=== PATIENT | male | born 1960 | race Hispanic/Latino ===

== ENCOUNTER 2017-01-09 12:55 | Observation (INO) | payer OTHER ==
[~2017-01-09] VITALS: Ht 167.6 cm; Wt 92.9 kg
[~2017-01-09 12:55] MED LIST: ASPI-628 PO; ATOR20TA PO; IBUP800T28 PO; IMI25 PO; TERA2CAP4 PO
[2017-01-09 13:00] VITALS: BP 143/82; PULSE 72; RESP 16; O2SAT 98
[2017-01-09 14:19] VITALS: BP 129/65; PULSE 57; RESP 18; O2SAT 98
[2017-01-09 14:45] LABS: APPEARANCE,URINE CLEAR (CLEAR,HAZY); COLOR,URINE YELLOW (YELLOW); OCCULT BLOOD,URINE LARGE (NEGATIVE); PH,URINE 5.5 (5.0-8.0); UROBILINOGEN,URINE NORMAL (NORMAL)
--- NOTE | 2017-01-09 14:58 | ED.REPORT ---
HPI-Neurologic Deficit Date of Service Jan 09, 2017 ED Provider: Casey Mann PA-C Conor is a 56-year-old male with a history of hyperlipidemia and stroke who presents with a chief complaint stroke symptoms. Patient states that while he feels fine presently, his coworkers noticed 2 episodes in which he appeared to have difficulty speaking, where he felt that his "mouth was twisting" and he "felt drunk" like he was walking sideways. The first episode occurred at 10:22 at 12:20. He currently has no complaints however his family states that they feel his speech sounds slurred. His previous stroke was 2 years ago and he reports increased forgetfulness as his only deficit. He currently takes topiramate, atorvastatin and aspirin as well as a prostate medication. Denies headache, chest pain, difficulty breathing, abdominal pain. Nursing Notes Stated Complaint: POSSIBLE STROKE Chief Complaint: Neuro Symptoms/ Deficits Nursing Notes Reviewed: Yes Allergies: Coded Allergies: No Known Allergies (Verified Allergy, Unknown, 01/09/17) Scheduled Aspirin (Aspir 81) 81 Mg Tablet.dr 81 MG PO DAILY Atorvastatin (Lipitor) 20 Mg Tablet 40 MG PO HS Terazosin (Terazosin) 2 Mg Capsule 4 MG PO HS Scheduled PRN Ibuprofen (Ibuprofen) 800 Mg Tablet 800 MG PO TIDPC PRN PRN For Pain Sumatriptan (Imitrex) 25 Mg Tablet 50 MG PO Q2H PRN PRN migraine General Time Seen by Provider: 17:35 Chief Complaint Other (aphasia) Hx Obtained From: Patient, Daughter, Other family... Arrived By: Walk-in Sudden in Onset?: Yes Onset Occurred: 1 - 4 hours ago Symptom Duration: Since onset Recent Healthcare: No recent doctor visit, No recent hospitalization Similar Sx Previous: No Risk Factors NIH Stroke Scale Level of Consciousness: Alert and responsive (0) Ask Month & Age: Both questions right (0) Open/Close Eyes/Hand Costing Manager: Performs both tasks (0) Horizontal EO Movements: None (0) Visual [place]: No visual loss (0) Facial Palsy: Normal symmetry (0) Right Arm Motor Drift (10s): No drift 10 sec (0) Left Arm Motor Drift (10s): No drift 10 sec (0) Right Leg Motor Drift (5s): No drift 5 sec (0) Left Leg Motor Drift (5s): No drift 5 sec (0) Limb Ataxia FNF/Heel-Franco: No ataxia (0) Sensation (Arms/Legs/Face): No sensory loss (0) Language Aphasia: No aphasia, normal (0) Dysarthria: No dysarthria, normal (0) Extinction/Inattention: No exctinct/inattent (0) NIHSS Score: 0 Time NIHSS Performed: 17:47 Date NIHSS Performed: Jan 09, 2017 Past Medical History Past Medical History Reports: Stroke Past Surgical History denies Smoking History Never Smoker Social History Alcohol Use: 1-3 per day Other Social History: Good social support, , Local resident Ambulatory Status Independent Review of Systems Negative unless stated otherwise in history of present illness Respiratory: Denies: Shortness of breath Cardiovascular: Denies: Chest pain GI: Denies: Abdominal pain Neurologic: Reports: Dizziness, Unable to speak, Denies: Headache, Weakness Complete sys rev & neg: except as marked. Physical Exam General: Well appearing, well developed, well nourished, no acute distress. Head: Atraumatic, normocephalic. Eyes: No scleral icterus or injection. No discharge. Vision grossly intact. ENT: Voice clear, hearing grossly intact. Respiratory: Regular rate and rhythm. Breath sounds present, clear to auscultation and equal bilaterally. No respiratory distress. No increased work of breathing, speaks in complete sentences. Cardiovascular: Regular rate and rhythm, without murmur, gallop or rub. No pedal edema. Gastrointestinal: Abdomen flat and non-tender without guarding or rebound. Bowel sounds normoactive. Skin: Warm and dry. Neurological: Slightly widened gait. Ataxia on heel to toe walk. Normal heel rise, toe rise, Romberg. Negative pronator drift, leg drift. Normal rapid hand , finger-nose. Cranial nerves: Vision grossly intact, PERRL, EOMI. Jaw opens slightly to the right. Tongue protrudes symmetrically, uvula rises symmetrically. No facial droop noted, eyebrows rise symmetrically, sensation to light touch over forehead , maxilla and mandible present and equal B/L. Voice clear and fluent, no drooling/pooling of saliva, uvula rises midline. Psychological: Alert and oriented. Speech appropriate, linear and logical. Behavior appropriate. Initial Vital Signs Vital Signs (First) Date Time Temp Pulse Resp B/P Pulse Ox O2 Delivery O2 Flow Rate FiO2 01/09/17 13:00 36.8 72 16 143/82 98 Room Air Initial VS: Reviewed, Vital signs normal ENT: Mucous membranes moist, Conjunctiva normal, No scleral icterus Neck: Supple, Non-tender, Full range of motion Abdomen / GI: Soft, Non-tender, No guarding, No rebound, No distention Extremities: Vascular intact, Neuro intact, No swelling, No tenderness Skin: Warm, Dry, No cyanosis Psychiatric: Mood/affect normal, Behavior normal, Normal thought content General/Constitutional: Awake, Alert, No acute distress, Cooperative Head / Eyes: Atraumatic, Normocephalic, PERRL, EOMI Respiratory / Chest: Atraumatic, Breath sounds NL, No respiratory distress Cardiovascular: Heart rate NL, Regular rhythm, Heart sounds NL Neurologic: Oriented X3, Speech NL, No motor deficits Interpretation & Diagnostics Lab Results Interpretation Test 01/09/17 14:24 Urine Color Yellow (YELLOW) Urine Appearance Clear (CLEAR,HAZY) Urine pH 5.5 (5.0-8.0) Urine Specific [place] 1.025 (1.003-1.035) Urine Protein Negativemg/dL (NEG,TRACE) Urine Glucose (UA) Negativemg/dL (NEGATIVE) Urine Ketones Negativemg/dL (NEGATIVE) Urine Occult Blood Large (NEGATIVE) Urine Nitrite Negative (NEGATIVE) Urine Bilirubin Negative (NEGATIVE) Urine Urobilinogen Normalmg/dL (NORMAL) Urine Leukocyte Esterase Negative (NEGATIVE) Urine RBC 11-50/hpf (0-2) Urine WBC 0-5/hpf (0-5) Urine Epithelial Cells Occasional/hpf (NONE-MOD) Urine Crystals None seen (NONE SEEN) Urine Bacteria None/hpf (NONE-FEW) Urine Hyaline Casts Occasional/lpf (NONE) Urine Granular Casts None seen (NONE SEEN) Urine Waxy Casts None seen (NONE SEEN) Urine Red Blood Cell Casts None seen (NONE SEEN) Urine White Blood Cell Casts None seen (NONE SEEN) Urine Mucus Present (None Seen) Urine Trichomonas None seen (NONE SEEN) Urine Yeast None (NONE SEEN) Urinalysis Comment None Urine Culture Reflexed Not indicated Hold Urine Received (Received) ECG Interpretation ECG Interpretation: RBBB Time: 17:59 Interpreted by: ED physician Normal ECG Interpretation: Normal ECG w/ rate of... (56) CT Head Interpretation IMPRESSION: 1. No acute process. 2. 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 3. Small right superior frontal meningioma is unchanged. 3. No change in small chronic right basal ganglia infarcts. Dictated by: Lashanda Wick M.D. on 01/09/2017 at 16:36 Approved by: Lashanda Wick M.D. on 01/09/2017 at 16:40 Study: Head CT no contrast Interpretation / Wet Read by: Interpret - Radiologist Re-Eval/Medical Decision Re-Evaluation/Progress : Time of Eval: 17:49 Patient Status: Condition unchanged Re-Evaluation/Progress Note: Pt rechecked. Discussed plan of treatment with family and patient and need for admission for mini-strokes and further evaluation. Family understands and agrees with treatment. Counseled Regarding: Diagnosis, Lab results, Need for admission Discharge & Departure Impression: Primary Impression: TIA (transient ischemic attack) Transient cerebral ischemia type: unspecified Qualified Code: G45.9 - Transient cerebral ischemic attack, unspecified Disposition: ADMITTED TO HOSPITAL Discharge Condition All VS Reviewed: Yes Condition: Stable Referrals: Timo Estrella MD (PCP) Scribe Attestation Portion of this note were transcribed by Ruth Daley. I, Dr. Finney, personally performed the history, physical exam, and medical decision-making: I reviewed and confirmed the accuracy for the information in the transcribed note. Signed by: gus Hernandez, 01/09/17 1930 copies to: Timo Estrella MD, Seth PA-C Jan 09, 2017 14:58 Ruth Daley Jan 09, 2017 17:43
[2017-01-09 16:36] VITALS: BP 129/62; PULSE 59; RESP 16; O2SAT 98
--- NOTE | 2017-01-09 16:41 | DRSVH ---
PROCEDURE: CT BRAIN WITHOUT CONTRAST ([id number]) INDICATIONS: ataxia TECHNIQUE: Noncontrast 4.5 mm thick angled axial sections acquired from the foramen magnum to the vertex, with c oronal reformats. COMPARISON: [facility], CT, ANGIO BRAIN, 09/01/2014, 15:53. [facility], MR, MR BRAIN WO CON, 11/24/2016, 16:19. FINDINGS: Image quality: Excellent. CSF spaces: Basal cisterns are patent. No extra-axial fluid collections. The ventricles are symmet gilma in size and shape. Brain: No acute intracranial bleeds. No change in high density within the left anterolateral frontal lobe subcortical white matter, compatible with sequelae of the knownvascular malformation. There is a dural based extra-axial calcified density measuring 11 mm overlying the right superior frontopariet al lobe junction, corresponding to a low T2 intensity focus seen by brain MRI, compatible with a smal l meningioma. No change in small chronic infarct within the right anterior and posterior basal gangli a. There is cerebral volume loss for age, with resultant ventricular and sulcal prominence. There ar e periventricular and deep white matter chronic small vessel ischemic changes. There is intracranial internal carotid artery atherosclerosis. Skull and face: Calvarium and visualized facial bones appear intact, without suspicious lesions. Sinuses: Visualized sinuses and mastoids are clear. IMPRESSION: 1. No acute process. 2. 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 3. Small right superior frontal meningioma is unchanged. 3. No change in small chronic right basal ganglia infarcts. Dictated by: Lashanda Wick M.D. on 01/09/2017 at 16:36 Approved by: Lashanda Wick M.D. on 01/09/2017 at 16:40
[2017-01-09 18:16] LABS: BASOPHILS % (AUTO) 0.6 % (0-3); MONOCYTES % (AUTO) 10.5 % (4-12); Mean Corpuscular Hemoglobin 30.2 pg (27.0-35.0); Mean Corpuscular Volume 89.2 fL (81-100); NEUTROPHILS % (AUTO) 42.1 % (40-74); Platelet Count 167 bil/L (150-400)
[2017-01-09] MEDS ORDERED: TAMS0.4C98 PO (18:44)
[2017-01-09] MEDS ORDERED: TOPI-59 PO (18:44)
[2017-01-09] MEDS ORDERED: ASPI81TA3 PO (18:45)
[2017-01-09] MEDS ORDERED: IBUP400T22 PO (18:45)
[2017-01-09] MEDS ORDERED: GLUC-91 PO (18:46)
[2017-01-09 18:53] VITALS: BP 128/61; PULSE 60; RESP 11; O2SAT 97
--- NOTE | 2017-01-09 19:06 | PCM.HPMED ---
Subjective Date of Service Jan 09, 2017 Primary Provider: Admitting Physician: Ciaran Sabillon MD Primary Care Physician: Timo Estrella MD Attending Physician: Ciaran Sabillon MD Chief Complaint: Slurred speech. History of Present Illness: This is a 56 years old male, Cambodian-speaking only, with past medical history of CVA in 2004, meningioma, A-V malformation, hypercholesterolemia, hypertension was admitted to the hospital complaining about having difficulty finding his words. Patient also complaining about 2 episodes of slurred speech lasting less than a minute also. He stated his symptoms were somewhat similar to his previous stroke and decided to come to the hospital for evaluation. On arrival to the hospital his symptoms had resolved and his NIH score was 1. ER workup including a CT scan of the brain is negative. Patient denied any extremity weakness, no lightheadedness, no chest pain, shortness of breath, no palpitation. He is on statin, and aspirin at home and stated he has been compliant with his medications. Patient is being kept on observation for work up for TIA versus CVA Review of Systems: A comprehensive review but report is negative except for what is described above in history of present illness Allergies Coded Allergies: No Known Allergies (Verified Allergy, Unknown, 01/09/17) Home Medications Aspirin (Aspir 81) 81 Mg Tablet. 81 MG PO DAILY Atorvastatin (Lipitor) 20 Mg Tablet 40 MG PO HS Terazosin (Terazosin) 2 Mg Capsule 4 MG PO HS Scheduled PRN Ibuprofen (Ibuprofen) 800 Mg Tablet 800 MG PO TIDPC PRN PRN For Pain Sumatriptan (Imitrex) 25 Mg Tablet 50 MG PO Q2H PRN PRN migraine PMH Hypertension, CVA, meningioma, hyperlipidemia, AV malformation Surgical History Aspirin (Aspir 81) 81 Mg Tablet.dr 81 MG PO DAILY Atorvastatin (Lipitor) 20 Mg Tablet 40 MG PO HS Terazosin (Terazosin) 2 Mg Capsule 4 MG PO HS Scheduled PRN Ibuprofen (Ibuprofen) 800 Mg Tablet 800 MG PO TIDPC PRN PRN For Pain Sumatriptan (Imitrex) 25 Mg Tablet 50 MG PO Q2H PRN PRN migraine Family History Family history reviewed and is noncontributory to the present illness Social History Hx Alcohol Use: Yes (1 DRINK PER NIGHT) Hx Substance Use: No Hx Tobacco Use: No Smoking Status: Never Smoker Living Arrangement: with Family Exam Vital Signs Vital Sign - Last Date Time Temp Pulse Resp B/P Pulse Ox O2 Delivery O2 Flow Rate FiO2 01/09/17 18:53 60 11 128/61 97 Room Air 01/09/17 13:00 36.8 Exam General \constitutional: Overweight male in bed comfortably, no acute distress, very pleasant HEENT: PERRL, normocephalic. Sclerae anicteric Mouth: Muscle mucosa, no thrush Neck: Supple, no JVD, carotid bruit, trachea is midline Chest: No chest wall tenderness, no deformity, normal respiratory effort. Lungs: Clear bilaterally, no call, no wheezing. Heart: S1-S2 regular rate and we can, no gallop, no murmur. Abdomen: Soft nontender, nondistended, bowel sounds normal. Extremity: No edema, no cyanosis, no tenderness. Skin: No rash, no ulcers, normal turgor. Neuro : Cranial nerves II-12 intact, no sensory deficit, no slurred speech. Muscle strength 5 out of 5 bilaterally Lab and Diagnostics Result Diagram: 01/09/17180501/09/171805 X-Rays, CTs and MRIs CT scan of the head reviewed : Small meningioma is unchanged. No acute ischemia or hemorrhage Assessment & Plan 1. TIA Chronic medical problems 1. History of CVA 2. History of AV malformation ( brain) 3. History of meningioma 4. Hypertension 5. Hypercholesterolemia Put on observation for TIA vs CVA. Initial CT scan is negative. NIH score : 1. Telemetry monitoring. Systolic blood pressure 120 on the time of admission. Start normal saline at 75ml/hr Obtain MRI was stroke protocol. Aspirin 81 mg orally daily.. On statin from home. Obtain lipid profile, TSH, hemoglobin A1c, antiphospholipid antibody Obtain 2-D echocardiogram, and carotid Doppler Swallow screen, then cardiac diet. Physical therapy evaluation Hip pain for DVT prophylaxis. Medication reviewed and reconciled. Short hospital stay is anticipated VTE Prophylaxis: Sub-Q Heparin (Unfractionated) Resuscitation Status: CPR: Attempt Resuscitation Time spent 55 minutes Ciaran Sabillon MD Jan 09, 2017 19:06
[2017-01-09 19:20] LABS: Magnesium 2.1 mg/dL (1.6-2.6)
[2017-01-09 19:21] VITALS: BP 128/61; PULSE 60; RESP 14; O2SAT 97
[2017-01-09 19:46] VITALS: BP 128/79; PULSE 57; RESP 18; O2SAT 98
--- NOTE | 2017-01-09 20:17 | NUR ---
Admit to room 3030 @19:30 with TIA. VSS, 98% o2 sat on RA. Oriented to room and poc on whiteboard.
--- NOTE | 2017-01-09 22:25 | DRSVH ---
PROCEDURE: MRI STROKE PROTOCOL ([id number]) Pre- and post-contrast brain MRI, non-contrast brain MR angiogram, pre- and postcontrast neck MR chester ogram INDICATIONS: TIA symptoms with speech difficulty TECHNIQUE: Brain: Noncontrast axial T1 spin echo, axial T2 fast spin echo, sagittal and axial FLAIR, coronal T2 fast spin echo, axial gradient echo, axial diffusion and ADC through the brain. After the administr ation of contrast, axial 3D VIBE of the cranial vasculature and brain. Brain MRA: Non-contrast 3-D time of flight MR angiogram, with multiple zsnfqtp-gunarfvyd-ggosylvegn (MIP) reformats performed. Neck MRA: Axial and sagittal TruFISP through the neck. Coronal dynamic MR angiogram during administ ration of contrast in the arterial and venous phases, with 3-dimenstional eitzrwj-qyaknfybs-buikbkeee n (MIP) reformats constructed from subtraction images. COMPARISON: [facility], CT, BRAIN (TPA), 08/31/2014, 15:16. [facility], MR, BRAIN W/O CONTRAST, 10/17/2014, 13:34. [facility], MR, MR BRAIN WO CON, 10/08/2015, 8:3 8. [facility], CT, CT BRAIN WO CON, 01/09/2017, 16:28. [facility], MR, STROK E PROTOCOL (PNL), 08/31/2014, 16:48. FINDINGS: Image quality: Excellent. BRAIN: CSF spaces: Ventricles are normal in size and shape. Basal cisterns are patent. No extra-axial flu id collections. Brain: Stable appearance of T2/FLAIR hyperintensity in left frontal periventricular white matter and enlarged draining vein, consistent with developmental venous anomaly. There is old lacunar infarcts involving right caudate and basal ganglia. No intracranial bleeds or mass effects. Diffusion weighte d images show no acute ischemic insults. There are mild periventricular white matter chronic small v essel ischemic changes. Brainstem appears normal. Normal intravascular flow voids are present. No a bnormal intracranial enhancement. Skull and face: Stable dense calcification in the right frontal bone possibly a calcified meningioma . Calvarial marrow signal is normal. Orbits appear normal. Sinuses: Sinuses and mastoids are clear. BRAIN MR ANGIOGRAM: Anterior circulation: Intracranial internal carotid arteries are normal in size and enhancement. Th e flow within the paired anterior cerebral arteries is normal and symmetric. The flow within the mid dle cerebral arteries is normal and symmetric. The anterior communicating artery is seen. No stenos es, occlusions, or aneurysms. Posterior circulation: The visualized portions of the vertebral arteries demonstrate normal caliber, and join to form a normal appearing basilar artery. The flow within the posterior cerebral arteries is normal and symmetric. No stenoses, occlusions, or aneurysms. NECK MR ANGIOGRAM: Carotids: Great vessels demonstrate a conventional anatomy as they arise from the aortic arch. The origins of the common carotid arteries appear patent. The calibers and courses of both common caroti d arteries are normal. The bifurcation regions appear normal bilaterally. The internal carotid maury anjali demonstrate normal course and caliber. Posterior circulation: The origins of the vertebral arteries appear patent. More superior portions of both vertebral arteries demonstrate normal course and caliber, and join to form a normal appearing basilar artery. Miscellaneous: Subclavian arteries appear patent. Pre-contrast images through the neck show no soft tissue abnormalities. IMPRESSION: BRAIN MRI: 1. No acute intracranial abnormalities. 2. 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 3. Old lacunar infarcts involving the right caudate and basal ganglia. 4. Mild periventricular matter chronic small vessel ischemic changes. BRAIN MR ANGIOGRAM: 1. No hemodynamic significant stenosis or occlusion in anterior or posterior circulations. NECK MR ANGIOGRAM: 1. Normal neck MR angiogram. The estimate of stenosis included in the report of the imaging study was calculated using the NASCET method Dictated by: Nathalia Garcia M.D. on 01/09/2017 at 21:52 Approved by: Nathalia Garcia M.D. on 01/09/2017 at 22:23
[2017-01-10] MEDS: Heparin 5,000 Unit/mL Inj SUBQ SCH ×2 (00:21→09:37)
[2017-01-10 00:31] VITALS: BP 123/79; PULSE 51; RESP 18; O2SAT 98
[2017-01-10 02:08] LABS: Hemoglobin A1C 5.9 % (4.8-5.6)
[2017-01-10 05:14] VITALS: BP 125/77; PULSE 60; RESP 18; O2SAT 96
[2017-01-10 05:53] VITALS: PULSE 56
--- NOTE | 2017-01-10 08:32 | NUR ---
Social Work: Screening Data: Pt is a 56 y/o male admitted for TIA. Pt's PCP is Dr Estrella, pt's insurance is [facility]. EMR reviewed. Readmit score 1. No d/c planning needs identified. [facility] will continue to follow if needs arise. Assessment: Pt who is independent at baseline. Plan: Pt will d/c home via POV when medically stable. No d/c planning needs identified. [facility] will continue to follow if needs arise. CARLOS Sanders
--- NOTE | 2017-01-10 09:29 | NUR ---
Evaluation completed. Please go to "Notes" then click on "Assessments and Notes" (bottom left corner of screen). Then select appropriate discipline tab on top of screen.
--- NOTE | 2017-01-10 10:11 | NUR ---
Evaluation completed. Please go to "Notes" then click on "Assessments and Notes" (bottom left corner of screen). Then select appropriate discipline tab on top of screen. Addendum: 01/10/17 at 1021 by PATRICE PRATT PT OK to be up ad mat
[2017-01-10 10:29] VITALS: PULSE 72
--- NOTE | 2017-01-10 10:37 | DRSVH ---
PROCEDURE: US BILATERAL DUPLEX DOPPLER IMAGING OF THE CAROTIDS ([id number]) INDICATIONS: Evaluate stroke follow up TECHNIQUE: Color and pulse Doppler interrogation was performed of both carotid systems, with image documentation and velocity measurements. COMPARISON: [facility], , MR STROKE PROTOCOL, 01/09/2017, 21:17. FINDINGS: All stenosis calculations are based on NASCET criteria. Right side: Brachial blood pressure: 128/61 mm Hg. Common carotid artery peak systolic velocity: 61 cm/sec. Internal carotid artery peak systolic velocity: 46 cm/sec. Internal carotid artery end diastolic velocity: 24 cm/sec. External carotid artery peak systolic velocity: 98 cm/sec. ICA/CCA peak systolic ratio: 0.75. Doll scale imaging description: Soft plaque noted in the origin of the right internal carotid artery . Percent internal carotid artery stenosis: Less than 50%. Vertebral artery: Flow direction is antegrade. Left side: Brachial blood pressure: 129/65 mm Hg. Common carotid artery peak systolic velocity: 71 cm/sec. Internal carotid artery peak systolic velocity: 37 cm/sec. Internal carotid artery end diastolic velocity: 19 cm/sec. External carotid artery peak systolic velocity: 89 cm/sec. ICA/CCA peak systolic ratio: 0.5 to. Doll scale imaging description: Soft plaque noted in the origin of the left internal carotid artery Percent internal carotid artery stenosis: Less than 50%. Vertebral artery: Flow direction is antegrade. IMPRESSION: Less than 50% stenosis of the internal carotid arteries bilaterally. Dictated by: Halima Weeks MD, PhD on 01/10/2017 at 10:32 Approved by: Halima Weeks MD, PhD on 01/10/2017 at 10:36
[2017-01-10 13:26] VITALS: BP 127/80; PULSE 65; RESP 20; O2SAT 96
--- NOTE | 2017-01-10 14:15 | CONS ---
[address] [address] CONSULTATION REPORT PATIENT: ROSE SCHMIDT : 1960 MR#: [id number] ADMIT: 01/09/2017 JOB ID: [id number] DATE OF SERVICE: 01/10/2017 NEUROLOGY CONSULTATION: REQUESTING PROVIDER: Dr. Finney HISTORY OF PRESENTING ILLNESS: The patient is a pleasant 56-year-old man well known to me in the clinic who presented following two episodes of slurred speech/inability to find the right word associated with tongue deviation. Each episode lasted less than 2 minutes. He reports the 1st episode occurred around 10:30, the second episode occurred around 12. This was noted by family members, including his , and he came to the emergency department for further evaluation. Chief complaint is difficulty speaking. He reports that he felt off-balance and felt as though he was walking sideways. He describes this also as feeling dizzy and as though his mouth was twisted. Again, to clarify, the episode occurred at 10:22 and 12:20. No recent illnesses. Past stroke was over two years ago. A complete review of systems was performed and was unremarkable. In the emergency department his NIH stroke scale was zero. He has a past medical history of migraine headaches, history of a stroke, and history of a developmental venous anomaly for which I have referred him to [facility] for further evaluation. He did undergo a carotid duplex that revealed less than 50% stenosis of the internal carotid arteries bilaterally. He also underwent a magnetic resonance imaging study of his brain, stroke protocol, which demonstrated no acute intracranial abnormalities, stable vascular malformation in the left frontal white matter, most likely a developmental venous anomaly. I reviewed this in detail with Dr. Halima Weeks, who did not note any evidence of hemorrhage. He also reports that he does not feel that this is likely a cavernoma. It does appear most consistent with a developmental venous anomaly. In any case, I do recommend that he be seen at [facility] for an evaluation. Also seen were old lacunar infarcts involving the right caudate and basal ganglia. Mild periventricular white matter chronic small vessel ischemic changes. No hemodynamically significant stenosis or occlusion in the anterior or posterior circulations. A normal neck MR angiogram. His initial CT of the head demonstrated no acute process. No change in the known left frontal lobe vascular malformation. Small right superior frontal meningioma which appears calcified and unchanged. No change in the small chronic right basal ganglia infarcts. PAST MEDICAL HISTORY/PAST SURGICAL HISTORY/FAMILY HISTORY/SOCIAL HISTORY/ ALLERGIES/MEDICATIONS: Please see chart LABORATORY STUDIES: WBC of 5.0, hemoglobin 14.3, hematocrit 42.2, and platelets of 167. Chemistry: Sodium 139, potassium 4.0, chloride was 106, bicarb was 20, BUN was 20, creatinine 0.88, and glucose 101. Hemoglobin A1c was 5.9. LFTs were within normal limits. Triglycerides 186, cholesterol 106, LDL cholesterol 36.8, and HDL cholesterol 32. Coags pending. Urinalysis: Occasional urine epithelial cells, occasional hyaline casts. Urine mucus: None seen. PHYSICAL EXAMINATION: Temperature 36.8, pulse of 65, respiratory rate of 20, blood pressure 127/80, pulse oximetry 96% on room air. General: He is a well-developed, well-nourished man in no acute distress. Head: Normocephalic, atraumatic. Neck: Supple. No carotid bruits were auscultated. Chest: Clear to auscultation. Heart: Regular rate and rhythm. Abdomen: Soft, nondistended, nontender. Extremities: No cyanosis, clubbing, or edema. NEUROLOGIC EXAMINATION: Mental status: He is awake, alert, oriented x3. Speech clear and fluent. There was no aphasia. Cranial nerves: Pupils equal, round, and reactive to light. Extraocular movements were smooth and conjugate, with no evidence of nystagmus. Face appears symmetrical. Facial sensation is intact to light touch and temperature. Auditory sensation was intact to finger rub. Palatal elevation was symmetrical. Tongue was midline. Sternocleidomastoids and trapezii were 5/5 bilaterally. Motor: Normal tone and bulk. Muscle strength 5/5 throughout. Sensation intact to light touch and temperature. Deep tendon reflexes 2+ and symmetrical. Plantars were flexor bilaterally. Coordination: [id number] was intact, without evidence of dysmetria. Gait was deferred. IMPRESSION AND RECOMMENDATIONS: Suspected transient ischemic attack. Initially I was concerned about the possibility that developmental venous anomaly/vascular malformation might have started to hemorrhage; however, after review with the neuroradiologist (Dr. Alvarado) in detail: 1. This appears to be a developmental venous anomaly as opposed to an arterial venous malformation. 2. There is no evidence of hemorrhage. In any case, I do recommend that he be seen at [facility] for further evaluation. It appears that the were the majority of his stroke risk factors are well controlled. He is physically active and is not obese. He does not smoke cigarettes. His cholesterol and blood pressure are controlled. In light of this, I suspect an aspirin failure. I recommend switching to Plavix 75 mg daily. I recommend continued optimization of control of stroke risk factors. NIH stroke scale zero MRS (modified [place] scale) of zero. I do recommend that he be seen at [facility] and follow up with me in the Neurology Clinic. I also recommend that he be seen by his primary care provider in followup. I did review in detail side effects of Plavix. I also reviewed with a java software through the tele-language service the results of his studies in detail. His daughter was also present with his at the bedside. Thank you, again, Dr. Finney, for allowing me to participate in the care of this delightful patient. Please feel free to contact me with any questions or concerns. ALEXIA
--- NOTE | 2017-01-10 14:26 | NUR ---
Neuro No deficits noted. Family denies current slurred speech or word searching. No facial droop, tongue deviation or weakness noted. Swallow evaluation and Physical therapy evaluation verified no deficits.
--- NOTE | 2017-01-10 14:55 | NUR ---
Social Work: Discharge Data: Pt is on day 1 of hospitalization. EMR reviewed. PT recommending home at this time. No d/c planning needs. D/C orders are in. DRY PASTE SUPERVISOR will continue to follow if needs arise. Assessment: Pt who is independent at baseline. Plan: Pt will d/c home via POV with family today. No d/c planning needs. D/C orders are in. DRY PASTE SUPERVISOR will continue to follow if needs arise. CARLOS Sanders
--- NOTE | 2017-01-10 15:05 | PCM.DIMED ---
Discharge Instructions Date of Service Jan 10, 2017 Dates of Hospitalization Jan 09, 2017 at 18:44 Discharge Diagnosis Discharge Diagnosis TIA Diet Heart Healthy Activity No restrictions Call your provider Fever or Chills, Shortness of breath, Bleeding, Chest pain, Vomitting, Excessive diarrhea, Weakness (unilateral), Other Patient Instructions Follow-up Provider: Timo Estrella MD Follow-up with PCP in: 1 week Provider: Terence Ferrer MD Follow-up in: 2 weeks Spenser Li MD Jan 10, 2017 15:05
[2017-01-10] MEDS ORDERED: CLOP75TA28 PO (15:07)
--- NOTE | 2017-01-10 16:07 | NUR ---
Discharge Patient departed unit via wheelchair, accompanied by staff and family. Patient alert and oriented, independent in room, denies chest pain, shortness of breath, abdominal discomfort, nausea or pain. Adequate nutritional intake and out put maintained. No neurological deficits noted. Discharge instructions/medications reviewed with patient/family, prior to discharge. All questions addressed. Patient belongings, stroke booklet and discharge instructions in hand. Prescriptions electronically transferred to [facility].
--- NOTE | 2017-01-10 16:24 | DRSVH ---
[facility] [address] [place] [address] Echocardiogram Report Name: ROSE SCHMIDT Study Date: 01/10/2017 Height: 66 in Hospital Exam Location: [facility] Weight: 204 lb Gender: Male BSA: 2.0 m2 : 1960 Age: 56 yrs BP: 125/77 mmHg Reason For Study: Stroke Ordering Physician: HOSPITALIST [facility] Performed By: Charlie Anderson Referring Physician: JOSELINE BABCOCK Interpretation Summary The ejection fraction is estimated to be 60-65%. There has been no significant change in LV EF since the previous study. There is no LV thrombus. The right ventricle is normal in size, thickness and function. No significant valvular pathology seen. Procedure: A two-dimensional transthoracic echocardiogram with color flow and Doppler was performed. The study quality was technically adequate. Comparison is made with the echocardiogram of 09/01/14. The patient was in normal sinus rhythm during the exam. Left Ventricle: The left ventricle is normal in size. There is mild concentric left ventricular hypertrophy. Proximal septal thickening is noted. There is no echo evidence for significant left ventricular outflow tract obstruction. Trabeculae near apex are visualized. No thrombus is observed. A false chord is noted (normal variant). There is no thrombus. The ejection fraction is estimated to be 60-65%. There has been no significant change since the previous study. There are no focal wall motion abnormalities. Spectral Doppler of the mitral valve is reversed, with an E/A wave ratio < 1.0. Right Ventricle: The right ventricle is normal in size, thickness and function. Atria: The left atrium grossly appears normal in size. The right atrium grossly appears normal in size. The interatrial septum is intact with no evidence for an atrial septal defect. Patient had a negative bubble study on prior echocardiogram. Mitral Valve: The mitral valve leaflets appear borderline thickened, but open well. The mitral valve leaflets are slightly calcified. There is trace mitral regurgitation. Aortic Valve: The aortic valve is grossly normal. The aortic valve is trileaflet. There is no aortic valve stenosis. No aortic regurgitation is present. Tricuspid Valve: The tricuspid valve is not well visualized, but is grossly normal. fatty tricuspid annulus. Pulmonary artery pressures cannot be estimated because of the lack of a measurable TR jet velocity. There is trace tricuspid regurgitation. Pulmonic Valve: The pulmonic valve is not well visualized. There is trace pulmonic regurgitation. Great Vessels: The aortic root is normal size. The dimensions of the ascending aorta are normal. The pulmonary artery is normal size. The IVC is of normal diameter and collapses greater than 50% with a sniff. This suggests a low right atrial pressure of 3 mm Hg. Pericardium/ Pleura There is no pericardial effusion. There is no pleural effusion. MMode/2D Measurements & Calculations LVIDd: 4.8 cmLVOT diam: 2.2 cm LV ruelas. diameter/BSA LV sys. diameter/BSA LVIDs: 3.2 cmAo root diam (cm/m^2): 2.4 (cm/m^2): 1.6 FS: 33.0 % IVSd: 1.1 cm asc Aorta Diam LVPWd: 1.2 cm Ao Arch Diam (Prox Trans): 2.6 cm RVD1 (basal) Doppler Measurements & Calculations Ao V2 max: 112.8 cm/secMV E max yemi MV E/A: 0.73 PA V2 max Ao max P.1 mmHg : 46.2 cm/sec Med Peak E' Yemi : 68.1 cm/sec Ao mean P.9 mmHg MV A max yemi PA mean PG LVOT Max Yemi : 63.5 cm/sec E/E' med: 16.9 : 0.99 mmHg : 73.7 cm/sec Lat Peak E' Yemi AIYANA(I,D): 2.6 cm E/E' lat: 10.2 sev ratio: 0.67 E/e' average MV dec time: 0.26 sec Ao V2 mean LV V1 max PG PA V2 mean : 81.3 cm/sec : 47.6 cm/sec Ao V2 VTI: 22.9 cmLV V1 VTI: 15.3 cm PA pr(Accel) : 19.8 mmHg AIYANA(V,D): 2.6 cm2 AIYANA indexed to BSA (cm^2/m^2): 1.3 Reading Physician:MONET
--- NOTE | 2017-01-10 22:53 | PCM.DC.MED ---
Discharge Summary Date of Service Jan 10, 2017 Dates of Hospitalization Date of Hospital Admission Jan 09, 2017 at 18:44 Date of Discharge: Jan 10, 2017 Providers: Admitting Physician: Ciaran Sabillon MD Primary Care Physician: Timo Estrella MD Attending Physician: Ciaran Sabillon MD Diagnosis at Time of Discharge Diagnosis at Time of Discharge TIA Procedures XRay, CTs & MRIs CT scan of the head reviewed : Small meningioma is unchanged. No acute ischemia or hemorrhage Brief History This is a 56 years old male, Tajik-speaking only, with past medical history of CVA in 2004, meningioma, A-V malformation, hypercholesterolemia, hypertension was admitted to the hospital complaining about having difficulty finding his words. Patient also complaining about 2 episodes of slurred speech lasting less than a minute also. He stated his symptoms were somewhat similar to his previous stroke and decided to come to the hospital for evaluation. On arrival to the hospital his symptoms had resolved and his NIH score was 1. ER workup including a CT scan of the brain is negative. Patient denied any extremity weakness, no lightheadedness, no chest pain, shortness of breath, no palpitation. He is on statin, and aspirin at home and stated he has been compliant with his medications. Patient was kept on observation for work up for TIA versus CVA under the hospitalist service. Hospital Course This is a 56 years old male, Tajik-speaking only, with past medical history of CVA in 2004, meningioma, A-V malformation, hypercholesterolemia, hypertension was admitted to the hospital complaining about having difficulty finding his words. Patient also complaining about 2 episodes of slurred speech lasting less than a minute also. He stated his symptoms were somewhat similar to his previous stroke and decided to come to the hospital for evaluation. On arrival to the hospital his symptoms had resolved and his NIH score was 1. ER workup including a CT scan of the brain is negative. Patient denied any extremity weakness, no lightheadedness, no chest pain, shortness of breath, no palpitation. He is on statin, and aspirin at home and stated he has been compliant with his medications. Patient was kept on observation for work up for TIA versus CVA under the hospitalist service. 1. TIA - Patient was seen in consultation by Dr. Terence robins and his impression and recommendations are as follows: "Suspected transient ischemic attack. Initially I was concerned about the possibility that developmental venous anomaly/vascular malformation might have started to hemorrhage; however, after review with a neuroradiologist in detail: 1. This appears to be a developmental venous anomaly as opposed to an arterial venous malformation. 2. There is no evidence of hemorrhage. In any case, I do recommend that he be seen at [facility] for further evaluation. It appears that the were the majority of his stroke risk factors are well controlled. He is physically active and is not obese. He does not smoke cigarettes. His cholesterol and blood pressure are controlled. In light of this, I suspect an aspirin failure. I recommend switching to Plavix 75 mg daily. I recommend continued optimization of control of stroke risk factors. NIH stroke scale zero MRIS (modified Alex scale) of zero. I do recommend that he be seen at [facility] and follow up with me in the Neurology Clinic. I also recommend that he be seen by his primary care provider in followup. I did review in detail side effects of Plavix. I also reviewed with a recruiting associate through the tele-language service the results of his studies in detail. His daughter was also present with his at the bedside." Chronic medical problems 1. History of CVA with all risk factors currently being controlled. 2. History of AV malformation ( brain) . Thought to be a developmental venous anomaly by Dr. Robins. Patient is to go to [facility] for further evaluation 3. History of meningioma which is calcified and does not appear to be of any current significant 4. Hypertension controlled with current medications. 5. Hypercholesterolemia well controlled with current medications. Disposition: The patient is stable for discharge according to Dr. robins her knows the patient very well. Exam Vital Signs (Last) Date Time Temp Pulse Resp B/P Pulse Ox O2 Delivery O2 Flow Rate FiO2 01/10/17 13:26 36.8 65 20 127/80 96 Room Air Exam General: Patient was in no apparent distress. HEENT: Head is atraumatic and normocephalic. Eyes: Pupils are equally round and reactive to light and accommodation. Extraocular muscles are intact. Sclera are white, anicteric. Subconjunctival mucosa is pink. Ears and nose are unremarkable. Oropharynx: There is no mucosal lesions, there is no thrush, there is no pharyngitis. Neck: Is supple, there are no nodes, or masses or tenderness. Chest: Is clear to auscultation and percussion. There are no rales, rhonchi, wheezes or rubs. Heart: Rate, rhythm is regular. There is no murmur, rub or gallop. Abdomen: Good bowel sounds are present. Abdomen is soft, nontender, no organomegaly or masses were appreciated. Extremities: Are symmetrical and well perfused. There is no edema, there is no cellulitis, no rash. Neurologic: There are no focal neurological deficits. Cranial nerves II through XII are intact. There are no sensory or motor deficits. Psychiatric: Patients mood is calm and shows no sign of agitation. Genital: Deferred Rectal: Deferred Test 01/09/17 14:24 01/09/17 18:06 Urine Color Yellow (YELLOW) Urine Appearance Clear (CLEAR,HAZY) Urine pH 5.5 (5.0-8.0) Urine Specific [place] 1.025 (1.003-1.035) Urine Protein Negativemg/dL (NEG,TRACE) Urine Glucose (UA) Negativemg/dL (NEGATIVE) Urine Ketones Negativemg/dL (NEGATIVE) Urine Occult Blood Large (NEGATIVE) Urine Nitrite Negative (NEGATIVE) Urine Bilirubin Negative (NEGATIVE) Urine Urobilinogen Normalmg/dL (NORMAL) Urine Leukocyte Esterase Negative (NEGATIVE) Urine RBC 11-50/hpf (0-2) Urine WBC 0-5/hpf (0-5) Urine Epithelial Cells Occasional/hpf (NONE-MOD) Urine Crystals None seen (NONE SEEN) Urine Bacteria None/hpf (NONE-FEW) Urine Hyaline Casts Occasional/lpf (NONE) Urine Granular Casts None seen (NONE SEEN) Urine Waxy Casts None seen (NONE SEEN) Urine Red Blood Cell Casts None seen (NONE SEEN) Urine White Blood Cell Casts None seen (NONE SEEN) Urine Mucus Present (None Seen) Urine Trichomonas None seen (NONE SEEN) Urine Yeast None (NONE SEEN) Urinalysis Comment None Urine Culture Reflexed Not indicated Hold Urine Received (Received) White Blood Count 5.0th/mm3 (3.8-10.1) Red Blood Count 4.73mil/mm3 (4.40-5.80) Hemoglobin 14.3g/dL (13.8-17.2) Hematocrit 42.2% (41.0-50.0) Mean Corpuscular Volume 89.2fL (81-100) Mean Corpuscular Hemoglobin 30.2pg (27.0-35.0) Mean Corpuscular Hemoglobin Concent 33.9% (32.0-37.0) Red Cell Distribution Width 13.0% (12.3-15.4) Platelet Count 167bil/L (150-400) Neutrophils (%) (Auto) 42.1% (40-74) Lymphocytes (%) (Auto) 44.6% (14-46) Monocytes (%) (Auto) 10.5% (4-12) Eosinophils (%) (Auto) 2.0% (0-5) Basophils (%) (Auto) 0.6% (0-3) Sodium Level 139mEq/L (134-144) Potassium Level 4.0mEq/L (3.5-5.2) Chloride Level 106mEq/L (97-108) Carbon Dioxide Level 20mmol/L (18-29) Blood Urea Nitrogen 20mg/dL (6-24) Creatinine 0.88mg/dL (0.76-1.27) Estimat Glomerular Filtration Rate 95mL/min (>59) Glucose Level 101mg/dL (60-99) Hemoglobin A1c 5.9% (4.8-5.6) Calcium Level 8.5mg/dL (8.5-10.1) Magnesium Level 2.1mg/dL (1.6-2.6) Total Bilirubin 0.3mg/dL (0.0-1.2) Aspartate Amino Transf (AST/SGOT) 25U/L (0-50) Alanine Aminotransferase (ALT/SGPT) 19U/L (0-44) Alkaline Phosphatase 57U/L (25-150) Total Protein 6.8g/dL (6.4-8.4) Albumin 4.0g/dL (3.4-5.0) Triglycerides Level 186mg/dL (0-149) Cholesterol Level 106mg/dL (100-199) LDL Cholesterol, Calculated 36.800mg/dL (0-99) VLDL Cholesterol 37.200mg/dL HDL Cholesterol 32mg/dL (>39) Cholesterol/HDL Ratio 3.31 (0.0-4.4) Discharge Medications Discharge Medications Atorvastatin (Lipitor) 20 Mg Tablet 40 MG PO HS Prescribed by: PETER ELIZONDO MD Clopidogrel (Clopidogrel) 75 Mg Tablet 75 MG PO DAILY Prescribed by: PETR LI MD Gluc/Raphael-MSM#1/Vit C/Holger/Bor (Kdxlniv-Pbumu-VMY Complex Cplt) 1 Each Tablet 1 EACH PO DAILY (Reported) Tamsulosin (Flomax) 0.4 Mg Capsule 0.4 MG PO HS (Reported) Topiramate (Topiramate) 25 Mg Tablet 25 MG PO DAILY (Reported) Followup Plan Disposition: Patient is being discharged home with his . Discharge Diet: Heart Healthy Discharge Activity: No restrictions Follow-up Provider: Timo Estrella MD Follow-up with PCP in: 1 week Provider: Terence Robins MD Follow-up in: 2 weeks Time spent Time spent on discharging this patient was greater than 35 minutes, over half of which was involved in counseling and coordination of care. Spenser Li MD Jan 10, 2017 22:53
[2017-01-12 12:07] LABS: dRVVT 34.2 sec (0.0-44.0)
== END 2017-01-10 16:12 | disposition home or self-care (01) ==
LOC: SED 12:55 → MPC 18:44
PROVIDERS: ADMIT Internal Medicine; ATTEND Internal Medicine
DX: R47.81 Slurred speech (principal); G45.9 Transient cerebral ischemic attack, unspecified; I10 Essential (primary) hypertension; E78.00 Pure hypercholesterolemia, unspecified; Z87.728 Personal history of other specified (corrected) congenital malformations of nervous system and sense organs; Z79.82 Long term (current) use of aspirin; Z79.02 Long term (current) use of antithrombotics/antiplatelets
CPT/HCPCS: 36415; 70450; 70549; 70553; 80053; 80061; 81000; 83036; 83735; 85025; 85613; 92610; 93005; 93880; 97161; 99285; A9585; C8929; G0378; J1644